=== PATIENT | male | born 1990 | race African-American/Black ===

== ENCOUNTER 2019-11-27 15:30 | Emergency (ER) | payer OTHER, SELFPAY ==
[2019-11-27 15:39] VITALS: BP 140/79; PULSE 87; RESP 16; TEMP 37; O2SAT 99
--- NOTE | 2019-11-27 15:47 | ED.EAR ---
HPI - Ear Problem General Chief complaint: Ear Stated complaint: ear pain/drainage Time Seen by Provider: 11/27/19 15:47 Source: patient and RN notes reviewed Mode of arrival: ambulatory Limitations: no limitations History of Present Illness HPI Narrative: This is a 29 years old male presents to the office for an evaluation of ears pain for one month. Describes as throbbing to ache pain associated with yellow drainage. He admits to using q-tip to clean his ears. Denies head trauma/injury. Related Data Allergies Allergy/AdvReac Type Severity Reaction Status Date / Time No Known Allergies Allergy Verified 11/27/19 15:49 Review of Systems Review of Systems: Narrative: CONSTITUTIONAL: Denies fever or feeling ENT: Denies congestion and sore throat CARDIOVASCULAR: Denies chest pain RESPIRATORY: Reports occasional cough GASTROINTESTINAL: Denies nausea, vomiting MUSCULOSKELETAL: Denies acute back pain NEUROLOGIC: Denies head [facility] Social History Social History (Updated 11/27/19 @ 16:11 by SATHISH Mcadams) Smoking status: Current every day smoker Comments At time of signature, I agree with nursing past medical, surgical, social and family history. There is no relevant family history pertinent to the presenting complaint. Exam Narrative: Exam Narrative: GENERAL: This is a well-nourished, well-developed patient, in no apparent distress. EYES: Sclera clear/white. Vision is grossly intact. EARS: External ears normal, auditory canals noted dry drainage with edematous and erythema, tragal tenderness. Bilateral TMs also noted erythema and bulging without obvious perforation. Hearing appears intact. CARDIOVASCULAR: Regular rate and rhythm without murmurs, gallops, or rubs. RESPIRATORY: Clear to auscultation except in lower lobes noted wheezing with inspiration. Breath sounds equal bilaterally. No use of accessory muscle post lip breathing. GASTROINTESTINAL: Abdomen soft, non-tender, nondistended. Bowel sounds are active. No hepato-splenomegaly, or palpable masses. No guarding. SKIN: warm, intact with no suspicious lesions or rash, good texture and turgor. NEURO: awake, alert, and oriented to person, place and time. There were no obvious focal neurologic abnormalities. Steady gait Stef Coma Scale Eye Opening: Spontaneous 4 [place] Coma Scale Motor: Obeys Commands 6 Stef Coma Scale Verbal: Oriented 5 Course Vital Signs Vital signs: Vital Signs Temperature 98.6 F 11/27/19 15:39 Pulse Rate 87 11/27/19 15:39 Respiratory Rate 16 11/27/19 15:39 Blood Pressure 140/79 11/27/19 15:39 Pulse Oximetry 99 11/27/19 15:39 Temperature 98.6 F 11/27/19 15:39 Pulse Rate 87 11/27/19 15:39 Respiratory Rate 16 11/27/19 15:39 Blood Pressure 140/79 11/27/19 15:39 Pulse Oximetry 99 11/27/19 15:39 Medical Decision Making MDM Narrative Medical decision making narrative: Patient is Urgent/Emergent. BP elevated due to current condition w/o HTN in PMH (Measure Met). Discharge instructions reviewed with patient, as well as provided in writing per nursing staff. The instructions also include specific and strict return/GO TO THE ER as well as f/u information. All questions have been answered, and the patient deny any further questions with discharge and discharge plan. Differential Diagnosis Differential Diagnosis: Sinusitis, otitis media, foreign body, cerumen impaction Vital Signs Vital Signs: Vital Signs Temperature 98.6 F 11/27/19 15:39 Pulse Rate 87 11/27/19 15:39 Respiratory Rate 16 11/27/19 15:39 Blood Pressure 140/79 11/27/19 15:39 Pulse Oximetry 99 11/27/19 15:39 Temperature 98.6 F 11/27/19 15:39 Pulse Rate 87 11/27/19 15:39 Respiratory Rate 16 11/27/19 15:39 Blood Pressure 140/79 11/27/19 15:39 Pulse Oximetry 99 11/27/19 15:39 Critical Care Time Critical Care Time Critical Care Time: No Discharge Plan Discharge Clinical Imp
== END 2019-11-27 16:10 | disposition home or self-care (01) ==
PROVIDERS: Emergency Provider Nurse Practitioner
DX: H60.63 Unspecified chronic otitis externa, bilateral (principal); H66.90 Otitis media, unspecified, unspecified ear
CPT/HCPCS: 99213; G0463

== ENCOUNTER 2020-01-11 14:22 | Emergency (ER) | payer OTHER, SELFPAY ==
[2020-01-11 14:27] VITALS: BP 143/92; PULSE 81; RESP 16; TEMP 37.2; O2SAT 99
--- NOTE | 2020-01-11 14:34 | ED.SKABFB ---
HPI - Skin/Abscess/Foreign Bdy General Chief complaint: Skin/Abscess/Foreign Body Stated complaint: skin rash Time Seen by Provider: 01/11/20 14:34 Source: patient Mode of arrival: ambulatory Limitations: no limitations History of Present Illness HPI narrative: Gordo Noe is a 29 yo male with PMH of eczema who comes to express care with with itching and scaling patch at the base of the skull inside hair. States that he has some fluid leak at night and it itches during the night Patient normally goes to cashier host[facility]hostess in [place] but he has been unable to get into the cashier host/hostess; he is insistent that he needs an oral antibiotic rather than a topical local application Related Data Allergies Allergy/AdvReac Type Severity Reaction Status Date / Time No Known Allergies Allergy Verified 11/27/19 15:49 Review of Systems Review of Systems: Narrative: CONSTITUTIONAL: Denies fever, chills, sweats. EYES: Denies visual changes, redness, discharge. ENT: Denies rhinorrhea, congestion, sore throat, otalgia. CARDIOVASCULAR: Denies chest pain, palpitations, edema. RESPIRATORY: Denies dyspnea, wheezing, cough GASTROINTESTINAL: Denies abdominal pain, nausea, vomiting, diarrhea. GENITOURINARY: Denies dysuria, hematuria, abnormal discharge SKIN: Denies rash or itching. Itching and flaking of area of skin NEUROLOGIC: Denies numbness, or focal weakness. PSYCHIATRIC: Denies anxiety or depression. PMFSH Social History Social History Smoking status: Current every day smoker Comments At time of signature, I agree with nursing past medical, surgical, social and family history. There is no relevant family history pertinent to the presenting complaint. Exam Narrative: Exam Narrative: GENERAL: This is a well-nourished, well-developed patient, in mild distress. HEAD: normocephalic, atraumatic. EYES: Sclera clear/white. Vision is grossly intact. EARS: External ears normal. Hearing grossly intact. NOSE: External nose normal without nasal discharge, nares without redness, no rhinorrhea. THROAT: Mucous membranes moist, posterior pharynx NECK: Neck supple, non-tender CARDIOVASCULAR: Regular rate and rhythm without murmurs, gallops, or rubs. RESPIRATORY: Clear to auscultation. Breath sounds equal bilaterally. No wheezes, rales, or rhonchi. GASTROINTESTINAL: Abdomen soft, non-tender, SKIN: warm, intact with no suspicious has patch of flaking and bumps at the base of this girl anterior root that is dry with flaking NEURO: awake, alert, and oriented to person, place and time. There were no obvious focal neurologic abnormalities. Steady gait EXTREMITIES: Normal range of motion. BACK: Nontender without deformity Course Course Emergency Course: Started on topical medication; patient unhappy that did not receive a systemic steroid. Referred back to his cashier host/hostess Vital Signs Vital signs: Vital Signs Temperature 99 F 01/11/20 14:27 Pulse Rate 81 01/11/20 14:27 Respiratory Rate 16 01/11/20 14:27 Blood Pressure 143/92 H 01/11/20 14:27 Pulse Oximetry 99 01/11/20 14:27 Temperature 99 F 01/11/20 14:27 Pulse Rate 81 01/11/20 14:27 Respiratory Rate 16 01/11/20 14:27 Blood Pressure 143/92 H 01/11/20 14:27 Pulse Oximetry 99 01/11/20 14:27 MDM - Skin/Abscess/Foreign Bdy Differential Diagnosis Differential diagnosis: Likely cellulitis, contact dermatitis and other (Eczema) Discharge Plan Discharge Clinical Impression: Eczema Qualifiers: Eczema type: other Qualified Code(s): L30.8 - Other specified dermatitis Patient Disposition: Home, Self-Care Condition: Stable Instructions: Eczema (ED), Dermatitis (ED) Prescriptions: New fluocinonide 0.05 % solution 1 applic TOPICAL BID Qty: 20 RF: 0 Follow-up/Referrals: Luther,Melissa Bhandari APN [Primary Care Provider] - Time of Disposition: 14:51 Discharge Date/Time: 01/11/20 15:02
--- NOTE | 2020-01-11 14:59 | PC.NURSE ---
pt requesting antibiotic po. pt told by provider abx is not warrented. pt is not satisfied and wants to speak again to provider. provider in room. pt spoke to provider and left the [facility]
== END 2020-01-11 15:02 | disposition home or self-care (01) ==
PROVIDERS: Emergency Provider Nurse Practitioner; PCP Nurse Practitioner Family
DX: L30.8 Other specified dermatitis (principal)
CPT/HCPCS: 99213; G0463

== ENCOUNTER 2020-02-17 15:01 | Emergency (ER) | payer OTHER, SELFPAY ==
[2020-02-17 15:10] VITALS: BP 141/85; PULSE 100; RESP 20; TEMP 37.2; O2SAT 99
--- NOTE | 2020-02-17 15:12 | ED.EAR ---
HPI - Ear Problem General Chief complaint: Ear Stated complaint: left ear pain Time Seen by Provider: 02/17/20 15:12 Source: patient and RN notes reviewed History of Present Illness HPI Narrative: Patient is a 29-year-old male who presents the urgent care with complaints of left ear pain and fullness. Patient states he had shingles approximately 3 weeks ago and was treated with antiviral. Patient states it was on the left side of his face and ever since then he has had some left ear pain and left eye tearing and sensitivity to light. Patient states that his ear has been bothering him for approximately 1 week and it feels full . Patient denies of any known trauma to the left eye or ear. No other acute complaints. No acute distress noted. Patient read the plan of care. Related Data Allergies Allergy/AdvReac Type Severity Reaction Status Date / Time No Known Allergies Allergy Verified 11/27/19 15:49 Review of Systems Review of Systems: Narrative: CONSTITUTIONAL: Denies fever, chills, or sweats. EYES: Reports of some clear tearing and mild swelling to the left eye ENT: Reports of left otalgia CARDIOVASCULAR: Denies chest pain, palpitations, or edema. RESPIRATORY: Denies cough or dyspnea. GASTROINTESTINAL: Denies abdominal pain, nausea, vomiting, or diarrhea. GENITOURINARY: Denies dysuria or hematuria. SKIN: Denies rash or itching. MUSCULOSKELETAL: Denies back pain, joint pain, or myalgia. NEUROLOGIC: Denies headache, numbness, or weakness. All other systems reviewed are negative, except as documented in HPI. PMFSH Social History Social History Smoking status: Current every day smoker Comments At the time of my signature, I reviewed and agree with the nursing past medical, surgical, social, and family history. There is no relevant family history pertinent to the patient complaint. Exam Narrative: Exam Narrative: GENERAL: This is a well-nourished, well-developed patient, in no apparent distress. HEAD: normocephalic, atraumatic. EYES: PERRL. Mild injection to left conjunctiva with clear tearing. Sclera clear/white. Vision is grossly intact. EARS: External ears normal, right auditory canal clear and without drainage, erythemic slightly injected left TM with notable drainage and likely dried shingles rash noted to the canal, right TMs normal without perforation. Hearing grossly intact. NOSE: External nose normal with no obvious nasal discharge, nares without redness, no rhinorrhea. THROAT: Mucous membranes moist, posterior pharynx clear. NECK: Neck supple SKIN: Notable scarring to the left side of the face due to shingles. Warm, intact with no suspicious lesions or rash, good texture and turgor. NEURO: awake, alert, and oriented to person, place and time. There were no obvious focal neurologic abnormalities. EXTREMITIES: No clubbing, cyanosis, or edema. Course Vital Signs Vital signs: Vital Signs Temperature 99 F 02/17/20 15:10 Pulse Rate 100 02/17/20 15:10 Respiratory Rate 20 02/17/20 15:10 Blood Pressure 141/85 H 02/17/20 15:10 Pulse Oximetry 99 02/17/20 15:10 Temperature 99 F 02/17/20 15:10 Pulse Rate 100 02/17/20 15:10 Respiratory Rate 20 02/17/20 15:10 Blood Pressure 141/85 H 02/17/20 15:10 Pulse Oximetry 99 02/17/20 15:10 Reviewed?patient is informed that they may have pre-hypertension or hypertension based on a blood pressure reading in the department. I recommend the patient call the primary care provider listed on their discharge instructions or a physician of their choice this week to arrange follow-up for further evaluation of possible pre-hypertension or hypertension. Medical Decision Making MDM Narrative Medical decision making narrative: Advised patient to complete oral antibiotic regimen as prescribed. Use eardrops to the left ear as directed. May use warm compress and ibuprofen as needed for pain. It is very likely rivas
== END 2020-02-17 15:35 | disposition home or self-care (01) ==
PROVIDERS: Emergency Provider Nurse Practitioner Family
DX: H66.92 Otitis media, unspecified, left ear (principal); Z86.19 Personal history of other infectious and parasitic diseases; F17.200 Nicotine dependence, unspecified, uncomplicated
CPT/HCPCS: 99213; G0463